=== PATIENT | female | born 1975 | race Caucasian/White ===

== ENCOUNTER 2023-04-28 08:53 | Outpatient (CLI) | payer OTHER ==
--- NOTE | 2023-04-28 16:25 | XRAY Report ---
PROCEDURE: Knee 3 View RT INDICATIONS: KNEE PAIN TECHNIQUE: 3 views of the right knee(s) were acquired. COMPARISON: None. FINDINGS: Bones: No fractures or dislocations. No suspicious bony lesions. Soft tissues: No knee joint effusion. No suspicious soft tissue calcifications or masses. IMPRESSION: No acute bony abnormality. Reviewed by: Ihsan Villareal MD on 04/28/2023 3:24 PM AKDT Approved by: Ihsan Villaeral MD on 04/28/2023 3:24 PM AKDT Station ID: [id number]
== END 2023-04-28 08:54 | disposition home or self-care (01) ==
LOC: DI 08:53
PROVIDERS: ATTEND Internal Medicine
DX: M25.561 Pain in right knee (principal)